=== PATIENT | male | born 1980 | race Hispanic/Latino ===

== ENCOUNTER 2018-07-31 19:01 | Emergency (ER) | payer BC ==
[2018-07-31] MEDS ORDERED: GUAIFENESIN-DM 200/20 MG 10 ML ONE (20:09)
[2018-07-31] MEDS ORDERED: METHYLPREDNISOLONE SOD SUCC 125MG/2ML VIAL ONE (20:10)
[2018-07-31] MEDS ORDERED: IPRATROPIUM/ALBUTEROL SULFATE 3 ML SOLUTION IH ONE (20:14)
== END 2018-07-31 20:57 | disposition home or self-care (01) ==
LOC: EDH 19:01
DX: J20.9 Acute bronchitis, unspecified (principal); I10 Essential (primary) hypertension; E11.9 Type 2 diabetes mellitus without complications
CPT/HCPCS: 71046; 82948; 94640; 96372; 99284; J2930

== ENCOUNTER 2019-06-04 22:10 | Emergency (ER) | payer BC, MEDICAID ==
[2019-06-04 22:43] LABS: APPEARANCE,URINE Clear (CLEAR); BILIRUBIN,URINE Negative (NEGATIVE); COLOR,URINE Yellow (YELLOW); GLUCOSE, URINE (UA) Negative (NEGATIVE); KETONES,URINE Negative (NEGATIVE); LEUKOCYTE ESTERASE ,URINE Negative (NEGATIVE); NITRATE,URINE Negative (NEGATIVE); OCCULT BLOOD,URINE Negative (NEGATIVE); PROTEIN,URINE Negative (NEGATIVE); UROBILINOGEN,URINE 0.2 mg/dL (0.2-1.0)
[2019-06-04 22:50] LABS: BASOPHILS % (AUTO) 0.6 % (0.0-5.0); EOSINOPHILS % (AUTO) 1.4 % (0.0-8.0); HEMATOCRIT 40.7 % (42-54); LYMPHOCYTES % (AUTO) 24.2 % (21.0-51.0); MEAN CORPUSCULAR HEMOGLOBIN 27.6 pg (27.0-33.0); MEAN CORPUSCULAR HGB CONC 34.2 g/dL (32.0-36.0); MEAN CORPUSCULAR VOLUME 80.9 fL (79-99); MONOCYTES % (AUTO) 5.4 % (3.0-13.0); NEUTROPHILS % (AUTO) 68.4 % (40.0-77.0); PLATELET COUNT (AUTO) 196 K/uL (130-400); RED BLOOD CELL COUNT(AUTO) 5.03 MIL/uL (4.50-6.20); WHITE BLOOD COUNT (AUTO) 9.1 K/uL (4.8-10.8)
[2019-06-04] MEDS ORDERED: METOCLOPRAMIDE 10 MG/2 ML VIAL ONE (22:56)
[2019-06-04] MEDS ORDERED: ONDANSETRON HCL 4 MG/2 ML VIAL ONE (22:56)
[2019-06-04] MEDS ORDERED: FAMOTIDINE/PF 20 MG/2 ML VIAL IV ONE (22:57)
[2019-06-04] MEDS ORDERED: SODIUM CHLORIDE 0.9% 1000ML 1,000 ML IV ONE (22:58)
[2019-06-04 23:05] LABS: CREATININE 1.2 mg/dL (0.5-1.5)
[2019-06-04 23:10] LABS: ALBUMIN 3.7 g/dL (3.5-5.0); BILIRUBIN,TOTAL 0.3 mg/dL (0.2-1.0); TOTAL PROTEIN, SERUM 7.9 g/dL (6.0-8.3)
[2019-06-04] MEDS ORDERED: LIDOCAINE HCL 2% VISCOUS 15 ML UDCUP ONE (23:58)
[2019-06-04] MEDS ORDERED: MAG HYDROX/AL HYDROX/SIMETH ES 30 ML SUSP UDCUP ONE (23:58)
[2019-06-04] MEDS ORDERED: LACTULOSE 20 GM/30 ML UDCUP ONE (23:58)
== END 2019-06-05 00:28 | disposition home or self-care (01) ==
LOC: EDH 22:10
DX: K29.70 Gastritis, unspecified, without bleeding (principal); R10.13 Epigastric pain; K59.00 Constipation, unspecified; E11.9 Type 2 diabetes mellitus without complications; I10 Essential (primary) hypertension; F41.9 Anxiety disorder, unspecified; E66.9 Obesity, unspecified; Z98.890 Other specified postprocedural states
CPT/HCPCS: 36415; 80053; 81003; 83690; 85025; 96361; 96374; 96375 ×2; 99284; J2405; J2765; J3490; J7030

== ENCOUNTER 2025-04-07 10:04 | Emergency (ER) | payer SELFPAY ==
[~2025-04-07] VITALS: Ht 172.7 cm; Wt 152.0 kg
[2025-04-07 10:27] LABS: IMMATURE GRANULOCYTE ABSOLUTE 0.07 K/uL (0-1); NUCLEATED RED BLOOD CELLS 0.0 % (0.0-0.19); PLATELET COUNT (AUTO) 221 K/uL (130-400); RED BLOOD CELL COUNT(AUTO) 5.02 MIL/uL (4.50-6.20); RED CELL DISTRIBUTION WIDTH 13.9 % (11.0-15.5); WHITE BLOOD COUNT (AUTO) 14.9 K/uL (4.8-10.8)
[2025-04-07 10:35] LABS: CREATININE 0.8 mg/dL (0.5-1.3); GLOMERULAR FILTR. RATE CALC 113.0 mL/min (>90); GLUCOSE,RANDOM 156.0 mg/dL (70-105); SODIUM SERUM 137.0 mmol/L (136-145); UREA NITROGEN, BLOOD 15.0 mg/dL (7-18)
[2025-04-07 11:18] LABS: RAPID GROUP A STREP negative (NEGATIVE)
--- NOTE | 2025-04-07 11:18 | NUR ---
PATIENT IN ER LOBBY, PENDING IV SITE, & CONSENT FOR CT EXAM.
[2025-04-07 11:19] LABS: SARS-CoV-2, RNA, NAAT NEGATIVE SARS CoV-2 (NEGATIVE)
[2025-04-07 11:27] LABS: INFLUENZA TYPE A Negative For Type A (NEGATIVE); INFLUENZA TYPE B Negative For Type B (NEGATIVE)
--- NOTE | 2025-04-07 11:30 | ERN ---
General Chief Complaint: Difficulty Swallowing Stated Complaint: SORE THROAT,DIFFICULTY SWALLOWING,NECK PAIN Time Seen by MD: 10:06 Source: patient History of Present Illness Initial Comments Patient is a 45-year-old male coming in complaining of dysphagia and sore throat. Per patient this has been ongoing for about a week. No fever no chills. Patient did state that he initially started having URI symptoms which include nasal congestion and cough. Allergies: Coded Allergies: No Known Allergies (Unverified Allergy, Unknown, 06/05/19) Past Medical History Past Medical History: Diabetes-Type II, Hypertension Past Surgical History: None ROS Dictation CONSTITUTIONAL: No chills, no fever, no weakness, no diaphoresis, no malaise. HEAD/FACE: No signs of trauma. EENT: No eye pain, no blurred vision, no tearing, no double vision, no ear pain, no ear discharge, no nose pain, nasal congestion, throat pain, throat swelling, no mouth pain. RESPIRATORY: No cough, no orthopnea, no SOB, no stridor, no wheezing. CARDIOVASCULAR: No chest pain, no edema, no palpitations, no syncope. GASTROINTESTINAL/ABDOMINAL: No abdominal pain, no constipation, no diarrhea, no nausea, no vomiting. GENITOURINARY: No abnormal discharge, no dysuria, no frequent urination, no hematuria. No complaints of pain in the genitals. MUSCULOSKELETAL: No back pain, no gout, no joint pain, no joint swelling, no muscle pain, no muscle stiffness, no neck pain. INTEGUMENTARY: No change in color, no change in hair/nails, no dryness, no lesion, no lumps, no rash. NEUROLOGICAL/PSYCH: No anxiety, not depressed, no emotional problem, no headache, no numbness, no pre-existing deficit, no history of seizures, no tremors, no weakness. HEMATOLOGIC/LYMPHATIC: Not anemic, no history of blood clots, no apparent bl eeding, no bruising, glands not swollen. All Systems Negative, Except as Noted. Physical Exam Physical Exam Dictation VITAL SIGNS: Reviewed. GENERAL APPEARANCE: Alert, oriented x3, no acute distress, obese. HEAD AND FACE: Non-traumatic. EYES: PERRL, pink conjunctivas, eyelid no trauma, anterior chamber clear. EARS: Pinnas intact and no signs of trauma or erythema. Ear canals clear and no discharge. TMs no erythema. NOSE: No discharge, no bleeding. OROPHARYNX: Mouth normal, teeth no caries, tongue pink. Pharynx clear, no erythema. Tonsils no exudates, abscesses noted. Mucous membrane moist. NECK: Supple, non-tender, no thyromegaly, no masses, no JVD, no bruits. BREAST: Deferred. CHEST: No tenderness, no crepitus, no paradoxical movement, no retractions. LUNGS: Clear, well-ventilated, symmetric, no rales, no wheezing, no rhonchi, no stridor, good breath sounds bilaterally. HEART: Regular rate, regular rhythm, no murmur, no gallops. VASCULAR: No peripheral edema. ABDOMEN: Soft, positive bowel sounds, nondistended, no guarding, nontender, no rebound, no masses no hepatomegaly, no splenomegaly, no Bush's sign, no hernias. RECTAL: Deferred. GENITAL: Deferred. NEUROLOGICAL: Normal speech, gross motor function intact, gross sensory function intact. MUSCULOSKELETAL: Neck nontender, full range of motion, back nontender, full range of motion. EXTREMITIES: Nontender, full range of motion. SKIN: Color pink, dry, no turgor, no rash, no lacerations, no abrasions, no contusions. LYMPHATICS: Deferred. Results Laboratory and Microbiology Lab and Micro Result Laboratory Tests Test 04/07/25 10:23 04/07/25 10:53 White Blood Count 14.9 K/uL (4.8-10.8) H Red Blood Count 5.02 MIL/uL (4.50-6.20) Hemoglobin 13.6 g/dL (14.0-18.0) L Hematocrit 40.4 % (42-54) L Mean Corpuscular Volume 80.5 fL (79-99) Mean Corpuscular Hemoglobin 27.1 pg (27.0-33.0) Mean Corpuscular Hemoglobin Concent 33.7 g/dL (32.0-36.0) Red Cell Distribution Width 13.9 % (11.0-15.5) Platelet Count 221 K/uL (130-400) Mean Platelet Volume 10.0 fL (7.5-10.5) Immature Granulocyte % (Auto) 0.5 % (0-1) Neutrophils (%) (Auto) 81.4 % (40.0-77.0) H Lymphocytes (%) (Auto) 12.1 % (21.0-51.0) L Monocytes (%) (Auto) 5.6 % (3.0-13.0) Eosinophils (%) (Auto) 0.2 % (0.0-8.0) Basophils (%) (Auto) 0.2 % (0.0-5.0) Neutrophils # (Auto) 12.2 K/uL (1.8-7.7) H Lymphocytes # (Auto) 1.8 K/uL (1.0-4.8) Monocytes # (Auto) 0.8 K/uL (0.1-1.0) Eosinophils # (Auto) 0.03 K/uL (0.00-0.70) Basophils # (Auto) 0.03 K/uL (0.00-0.20) Absolute Immature Granulocyte (auto 0.07 K/uL (0-1) Nucleated Red Blood Cells 0.0 % (0.0-0.19) Sodium Level 137 mmol/L (136-145) Potassium Level 3.9 mmol/L (3.5-5.1) Chloride Level 102 mmol/L (101-111) Carbon Dioxide Level 28 mmol/L (21-32) Blood Urea Nitrogen 15 mg/dL (7-18) Creatinine 0.8 mg/dL (0.5-1.3) Glomerular Filtration Rate Calc 113 mL/min (>90) Random Glucose 156 mg/dL (70-105) H Total Calcium 9.5 mg/dL (8.5-10.1) Influenza Type A Antigen Negative For Type A Influenza Type B Antigen Negative For Type B SARS-CoV-2, RNA, NAAT NEGATIVE SARS CoV-2 Group A Streptococcus Rapid negative (NEGATIVE) Labs Reviewed?: Yes EKG/XRAY/US/CT/MRI CT Scan Comment [place] [id number] [address] IMAGING REPORT Signed PATIENT: PATY OCHOA MR#: [id number] : 1980 SEX: M AGE: 45 LOCATION: [facility] ORDER [id number] STATUS: REG REPORT#: [id number] SERVICE 1111 REASON: dysphagia ORDERING PHYSICIAN: DENTON MATTSON MD PROCEDURE: NKSOFTI W - CT NECK SOFT TISS W/CONTRAST EXAM: CT Neck with Intravenous Contrast. CLINICAL HISTORY: dysphagia TECHNIQUE: Axial computed tomography images of the neck with intravenous contrast. Sagittal and coronal reformatted images were generated. CONTRAST: None. COMPARISON: None provided. FINDINGS: PHARYNX: an ill-defined mildly enhancing soft tissue mass measuring 3.3 x 3.1 x 7.4 (AP x TRS x CC) in the right mucosal pharyngeal space involving the soft palate and parapharyngeal arch, extending inferiorly to the superior margin of the C4 vertebra. The lesion abuts the prevertebral space and retropharyngeal space posteriorly with loss of intervening fat planes and closely approximates the right internal carotid artery without evidence of thrombosis. Inferiorly, the mass infiltrates the right pyriform sinus, resulting in its obliteration. These findings are concerning for an infiltrative neoplastic process. LARYNX: The larynx is unremarkable. The epiglottis appears normal. SALIVARY GLANDS: No salivary gland abnormality evident. Unremarkable appearance of the parotid, submandibular, and sublingual glands. LYMPH NODES: Multiple subcentimetric cervical lymph nodes. THYROID: The thyroid gland is unremarkable. No nodule is evident. BONES: No aggressive appearing osseous lesion. No acute osseous abnormality. IMPRESSION: 1. Ill-defined enhancing soft tissue mass in the right mucosal pharyngeal space, measuring 3.3 x 3.1 x 7.4 cm, concerning for infiltrative neoplasm. Mass extends from soft palate to C4 vertebra, abutting prevertebral and retropharyngeal spaces, closely approximating right internal carotid artery without thrombosis, and infiltrating right pyriform sinus. ENT evaluation recommended 2. Multiple subcentimetric cervical lymph nodes. /[place] DICTATED BY: VIRGIE ZARATE MD DATE: 04/07/251641 ELECTRONICALLY SIGNED BY: VIRGIE ZARATE MD DATE: 04/07/251641 [facility] MDM: Differential diagnosis: Oropharyngeal mass, dysphagia Rationale: Tests considered and ordered secondary to shared decision making include: Previous outside records reviewed: Old ER visits. Risk of complication and/or morbidity or mortality of patient management: None Medications-Per medication reconciliation Need for hospitalization: Patient does meet criteria for hospitalization. Need for emergency major/minor surgery: No There are no social concerns with this patient. Prescription drug management Prescriptions will include symptomatic care Patient's prior external medical records from other ER visits were reviewed by me as indicated. Prior testing and results from previous visits were reviewed. Prior tests were taken into account with medical decision making and resource utilization, independent historian/historians were used to obtain complete medical history. I independently interpreted the test that were performed, results were reviewed by me and considered findings on radiology if ordered. Medical management and examination interpretation discussions were had by me with other qualified healthcare professionals as indicated for the patient's care. SPOKE TO ENT DR. CARUSO WHO STATES HE WILL BE CONSULTED. HOSPITALIST DR. LONG ACCEPTING PATIENT ED Course Orders Procedure Category Date Status Time Cbc With Differential LAB 04/07/25 Complete 10:11 Basic Metabolic Panel LAB 04/07/25 Complete 10:11 Rapid (Group A Strep) LAB 04/07/25 Complete 10:11 Covid Rna Naat LAB 04/07/25 Complete 10:11 Influenza Type A & B, LAB 04/07/25 Complete Rapid 10:[address] Ct [address] Tiss CT 04/07/25 Resulted W/Contrast 11:11 Methylprednisolone PHA 04/07/25 Complete Succ 125mg (Solu-Medr 11:30 Ceftriaxone 1g Vial PHA 04/07/25 Complete (Rocephine 1g Inj) 11:30 Iohexol (Omnipaque) PHA 04/07/25 Complete 13:55 Prednisolone 15mg/5ml PHA 04/07/25 Complete Soln (Orapred 15mg 17:00 Current Medications Medications (Trade) Dose Ordered Sig/[place] Route PRN Reason Start Time Stop Time Status Last Admin Dose Admin Ceftriaxone Sodium (ROCEphine 1G INJ) 1 gm ONCE ONCE IVPB 04/07/25 11:30 04/07/25 11:31 DC 04/07/25 13:23 Iohexol (Omnipaque) 50 ml STK-MED ONCE IV 04/07/25 13:55 04/07/25 13:55 DC Methylprednisolone Sodium Succinate (Solu-medROL 125MG) 125 mg ONCE ONCE IVP 04/07/25 11:30 04/07/25 11:31 DC 04/07/25 13:23 Prednisolone Sodium Phosphate (oraPRED 15MG/ 5ML SOLN) mg ONCE ONCE PO 04/07/25 17:00 04/07/25 17:01 DC 04/07/25 16:43 Vital Signs Date Time Temp Pulse Resp B/P (MAP) Pulse Ox O2 Delivery O2 Flow Rate FiO2 04/07/25 15:50 99.0 64 18 167/69 99 Room Air* 0 21 04/07/25 13:44 99.0 72 18 126/70 99 Room Air* 0 21 04/07/25 10:06 98.1 69 20 131/79 97 0 DX & DISP Disposition: Transfer Decision to Admit Time: 17:11 Departure Impression: Primary Impression: Oropharyngeal mass Condition: Stable Referrals: QUYEN DECKER MD (PCP) DENTON MATTSON MD Apr 07, 2025 11:30
--- NOTE | 2025-04-07 12:30 | NUR ---
PATIENT IS STILL IN ER LOBBY, STILL PENDING IV SITE & CONSENT FOR CT EXAM.
[2025-04-07] MEDS ORDERED: IOHEXOL-350 50ML VIAL IV ONE (13:55)
--- NOTE | 2025-04-07 14:06 | NUR ---
PT AT CT
--- NOTE | 2025-04-07 15:42 | HMCIMG ---
EXAM: CT Neck with Intravenous Contrast. CLINICAL HISTORY: dysphagia TECHNIQUE: Axial computed tomography images of the neck with intravenous contrast. Sagittal and coronal reformatted images were generated. CONTRAST: None. COMPARISON: None provided. FINDINGS: PHARYNX: an ill-defined mildly enhancing soft tissue mass measuring 3.3 x 3.1 x 7.4 (AP x TRS x CC) in the right mucosal pharyngeal space involving the soft palate and parapharyngeal arch, extending inferiorly to the superior margin of the C4 vertebra. The lesion abuts the prevertebral space and retropharyngeal space posteriorly with loss of intervening fat planes and closely approximates the right internal carotid artery without evidence of thrombosis. Inferiorly, the mass infiltrates the right pyriform sinus, resulting in its obliteration. These findings are concerning for an infiltrative neoplastic process. LARYNX: The larynx is unremarkable. The epiglottis appears normal. SALIVARY GLANDS: No salivary gland abnormality evident. Unremarkable appearance of the parotid, submandibular, and sublingual glands. LYMPH NODES: Multiple subcentimetric cervical lymph nodes. THYROID: The thyroid gland is unremarkable. No nodule is evident. BONES: No aggressive appearing osseous lesion. No acute osseous abnormality. IMPRESSION: 1. Ill-defined enhancing soft tissue mass in the right mucosal pharyngeal space, measuring 3.3 x 3.1 x 7.4 cm, concerning for infiltrative neoplasm. Mass extends from soft palate to C4 vertebra, abutting prevertebral and retropharyngeal spaces, closely approximating right internal carotid artery without thrombosis, and infiltrating right pyriform sinus. ENT evaluation recommended 2. Multiple subcentimetric cervical lymph nodes. /[place]
--- NOTE | 2025-04-07 17:00 | NUR ---
PT FEELS COMFORTABLE. HE STATES HIS THOAT FEELS LESS SWOLLEN. HE IS MAINTAINING HIS AIRWAY,UNLABORED BREATHING SYMMETRICAL EQUAL CHEST MOVEMENTS.
--- NOTE | 2025-04-07 18:18 | NUR ---
REPORT GIVEN TO LEIGH,CHARGE NURSE AT [facility],RM [id number]
--- NOTE | 2025-04-07 19:29 | NUR ---
EMS PRESENT TO TRANSFER PATIENT. AT BEDSIDE.
[2025-04-07 19:30] VITALS: BP 127/64; PULSE 72; RESP 18; TEMP 99.3; O2SAT 98
== END 2025-04-07 19:34 | disposition short-term general hospital (02) ==
LOC: EDH 10:04
DX: R22.1 Localized swelling, mass and lump, neck (principal); E11.9 Type 2 diabetes mellitus without complications; I10 Essential (primary) hypertension; Z20.822 Contact with and (suspected) exposure to COVID-19
CPT/HCPCS: 99285; 96374; 70491; 87635; 96375; 80048; 85025; 87880; 87804 ×2; 36415; J2919; J0696; Q9967